=== PATIENT | female | born 1980 | race Caucasian/White ===

== ENCOUNTER 2022-12-24 21:11 | Outpatient (REF) | payer BC, SELFPAY ==
[2022-12-30 11:13] LABS: Age Gdln ACOG Testing Note (.); HPV Aptima Negative (Negative); IGP, Aptima HPV, rfx 16/18,45 Note (.)
== END 2022-12-24 21:12 | disposition home or self-care (01) ==
LOC: LAB 21:11
PROVIDERS: Visit Provider Obstetrics & Gynecology
DX: Z01.419 Encounter for gynecological examination (general) (routine) without abnormal findings (principal)
CPT/HCPCS: 87624; G0145

== ENCOUNTER 2024-02-16 19:58 | Outpatient (REF) | payer BC, SELFPAY ==
[2024-02-18 20:07] LABS: Age Gdln ACOG Testing Note (.); HPV Aptima Negative (Negative); IGP, Aptima HPV, rfx 16/18,45 Note (.)
== END 2024-02-16 19:59 | disposition home or self-care (01) ==
LOC: LAB 19:58
PROVIDERS: Visit Provider Obstetrics & Gynecology
DX: Z01.419 Encounter for gynecological examination (general) (routine) without abnormal findings (principal)
CPT/HCPCS: 87624; 88175